=== PATIENT | female | born 2000 | race Two or more races ===

== ENCOUNTER 2022-09-09 00:21 | Emergency (ER) | payer OTHER ==
[~2022-09-09] VITALS: Ht 160 cm; Wt 65.8 kg
[2022-09-09] MEDS ORDERED: LEVOTHYROXINE125 MCG PO (01:20)
== END 2022-09-09 06:00 | disposition home or self-care (01) ==
LOC: EMR PED 00:21
DX: S82.845A Nondisplaced bimalleolar fracture of left lower leg, initial encounter for closed fracture (principal); X58.XXXA Exposure to other specified factors, initial encounter; Y93.39 Activity, other involving climbing, rappelling and jumping off; Y92.89 Other specified places as the place of occurrence of the external cause; Y99.9 Unspecified external cause status